=== PATIENT | male | born 2000 | race African-American/Black ===

== ENCOUNTER 2022-02-16 10:57 | Emergency (ER) | payer OTHER ==
[2022-02-16 11:09] VITALS: BP 105/58
--- NOTE | 2022-02-16 11:35 | XRAY Report ---
PROCEDURE: Wrist 4 View RT INDICATIONS: Trauma TECHNIQUE: 4 views of the wrist were acquired. COMPARISON: None FINDINGS: Bones: No fractures or dislocations. No suspicious bony lesions. Scaphoid view: Unremarkable Soft tissues: No suspicious soft tissue calcifications. IMPRESSION: Unremarkable right wrist radiographs Reviewed by: Irvin Gupta MD on 02/16/2022 10:34 AM AKAJIME Approved by: Irvin Gupta MD on 02/16/2022 10:34 AM AKDT Station ID: [id number]
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
[2022-02-16] MEDS ORDERED: IBUPROFEN 600 MG TABLET PO STA (11:48)
== END 2022-02-16 12:05 | disposition home or self-care (01) ==
LOC: ED 10:57
DX: S63.501A Unspecified sprain of right wrist, initial encounter (principal); V89.2XXA Person injured in unspecified motor-vehicle accident, traffic, initial encounter
CPT/HCPCS: 73110; 99282; 99283; A9270